=== PATIENT | male | born 1975 | race Caucasian/White ===

== ENCOUNTER 2019-02-22 14:01 | Emergency (ER) | payer MEDICAID, OTHER ==
[~2019-02-22] VITALS: Ht 177.8 cm; Wt 74.8 kg
[2019-02-22 14:30] VITALS: BP 138/87
== END 2019-02-22 15:45 | disposition left against medical advice (07) ==
LOC: EDBD 14:01 → ER 14:04
DX: M54.9 Dorsalgia, unspecified (principal); Z53.21 Procedure and treatment not carried out due to patient leaving prior to being seen by health care provider
CPT/HCPCS: 72125; 72128; 72131